=== PATIENT | male | born 1995 | race African-American/Black ===

== ENCOUNTER 2025-06-24 04:44 | Emergency (ER) | payer SELFPAY ==
[2025-06-24 04:49] VITALS: PULSE 74; RESP 16; O2SAT 95
== END 2025-06-24 05:11 | disposition left against medical advice (07) ==
LOC: ER 04:44
DX: I88.9 Nonspecific lymphadenitis, unspecified (principal); Z53.21 Procedure and treatment not carried out due to patient leaving prior to being seen by health care provider
CPT/HCPCS: 99281